=== PATIENT | male | born 1935 | race Hispanic/Latino ===

== ENCOUNTER 2018-03-31 09:27 | Observation (INO) | payer MEDICARE, MEDICAID ==
[2018-03-30 15:29] LABS: BASOPHILS % 0.7 % (0.0-1.0); EOSINOPHILS # (AUTO) 0.2 (0.0-0.4); EOSINOPHILS % 3.2 % (0.0-6.0); HEMATOCRIT 35.9 % (38.2-49.6); HEMOGLOBIN 12.4 g/dL (14.0-18.0); LYMPHOCYTES # (AUTO) 1.3 (1.0-3.2); LYMPHOCYTES % 21.3 % (18.0-39.1); MEAN CORPUSCULAR HEMOGLOBIN 30.8 pg (28-32); MEAN CORPUSCULAR HGB CONC 34.5 g/dL (31-35); MEAN CORPUSCULAR VOLUME 89.3 fL (81-99); MONOCYTES # (AUTO) 0.6 (0.2-0.8); MONOCYTES % 9.6 % (4.4-11.3); NEUTROPHILS # (AUTO) 3.9 (2.1-6.9); NEUTROPHILS % 64.5 % (38.7-80.0); PLATELET COUNT 162 x10e3/uL (140-360); RED BLOOD COUNT 4.02 x10e6/uL (4.3-5.7); RED CELL DISTRIBUTION WIDTH 13.4 % (11.7-14.4)
[2018-03-30 15:44] LABS: CALCIUM 8.6 mg/dL (8.4-10.2); CREATININE, SERUM 1.93 mg/dL (0.72-1.25)
[2018-03-30 15:49] LABS: ANION GAP 12.8 mmol/L (8-16); POTASSIUM 4.8 mmol/L (3.5-5.1)
--- NOTE | 2018-03-30 16:09 | Diagnostic Imaging Report ---
PROCEDURE: Frontal and lateral views of the chest. COMPARISON: None. INDICATIONS: PREOP FINDINGS: Lines/tubes: None. Lungs: Limited by low lung volumes. There is no evidence of pneumonia or pulmonary edema. Pleura: There is no significant pleural effusion or pneumothorax. Heart and mediastinum: The cardiac silhouette is enlarged, accentuated by low lung volumes. Bones: No acute bony abnormality. Degenerative changes of thoracic spine. IMPRESSION: 1. No definite acute cardiopulmonary disease. Dictated by: Masood Acevedo M.D. on 03/30/2018 at 16:15 Electronically approved by: Masood Acevedo M.D. on 03/30/2018 at 16:15
[~2018-03-31 09:27] MED LIST: AMLODIPINE-ATO1 EAC6 PO; ATORVASTATIN CA10 MG PO; BREO INH; BRIMONIDINE TAR10 ML OS; CLOPIDOGREL75 MG PO; DORZOLAMIDE HCL10 ML OS; FAMOTIDINE20 MG PO; FLUTICASONE PRO16 GM; GLIMEPIRIDE2 MG PO; KIONEX15 GM/60 M PO; LATANOPROST2.5 ML OP; LEVOCETIRIZINE D5 MG PO; LOSARTAN POTAS100 MG PO; LYRICA50 MG PO; METFORMIN HCL850 MG PO; NIFEDIPINE ER30 M1 PO; PANTOPRAZOLE SO40 MG PO; PRAVASTATIN SOD40 MG PO; PROVENTIL HFA6.7 GM INH; ROPIVACAINE 246.25 MG, EPINEPHRINE HCL 1:1000 0.5 MG, CLONIDINE HCL 0.08 MG, KETOROLAC ... INJ ONE; SYMBICORT 16010.2 GM INH; TAMSULOSIN HCL0.4 MG PO; TIMOLOL MALEATE10 M1 OD; [UNRECOGNIZED DRUG - OTHER] OP
[2018-03-31] MEDS ORDERED: DEXAMETHASONE SOD PHOS 10 MG/1 ML VIAL ONE (10:04)
[2018-03-31] MEDS ORDERED: CELECOXIB 200 MG CAP ONE (10:04)
[2018-03-31] MEDS ORDERED: VANCOMYCIN 1GM/NS 250 ML 250 ML ONE (10:05)
[2018-03-31] MEDS ORDERED: GABAPENTIN 300 MG CAP ONE (10:05)
[2018-03-31] MEDS ORDERED: TRANEXAMIC ACID 1,000 MG/10 ML ML ONE (11:21)
[2018-03-31] MEDS ORDERED: BACITRACIN 50,000 UNIT VIAL ONE (11:22)
[2018-03-31] MEDS ORDERED: ACETAMINOPHEN 1000 MG/100 ML 100 ML IV ONE (12:21)
[2018-03-31] MEDS ORDERED: HYDROCODONE/APAP 7.5MG-325MG 1 EA TAB PO PRN (13:15)
[2018-03-31] MEDS ORDERED: PROMETHAZINE HCL (IM) 25 MG/ML VIAL INJ PRN (13:15)
[2018-03-31] MEDS ORDERED: HYDROCODONE/APAP 5MG-325MG TAB PO PRN (13:15)
[2018-03-31] MEDS ORDERED: DOCUSATE SODIUM 100 MG CAP PO PRN (13:15)
[2018-03-31] MEDS ORDERED: ONDANSETRON HCL INJ 2 MG/ML VIAL IV PRN (13:15)
[2018-03-31] MEDS ORDERED: DIPHENHYDRAMINE HCL INJ 50 MG/ML VIAL IM/IV PRN (13:15)
[2018-03-31] MEDS ORDERED: ACETAMINOPHEN 650 MG SUPP PR PRN (13:15)
[2018-03-31] MEDS ORDERED: KETOROLAC TROMETHAMINE 30 MG/ML VIAL IV PRN (13:15)
[2018-03-31] MEDS ORDERED: CEFAZOLIN SOD 1 GM/D5W 50ML 50 ML IV SCH (14:00)
--- NOTE | 2018-03-31 14:17 | Operative Report ---
DATE OF PROCEDURE: March 31, 2018 ADVERTISING PROJECT MANAGER: Chris Raya PA-C The patient was brought to the operating room for induction of anesthesia. Throughout this case, my PA's assistance was necessary for retraction of soft tissue and positioning of the extremity. This allows for efficient and technically successful execution of the operation and is considered medically necessary. PREOPERATIVE DIAGNOSIS: Osteoarthritis right knee. POSTOPERATIVE DIAGNOSIS: Osteoarthritis right knee. PROCEDURE: Right total knee arthroplasty. INDICATIONS: The patient is an 82-year-old gentleman who has end-stage arthritis of his right knee. He has failed conservative management and would like to proceed with a right total knee replacement. We have reviewed the risks and benefits. He states he understands and wishes to proceed. DESCRIPTION OF PROCEDURE: The patient was brought into the operating room and placed under general anesthetic. His right lower extremity was prepped and draped in a sterile manner. He received prophylactic antibiotics, a regional block and tranexamic acid in the holding area. A preoperative time out was performed. The extremity was exsanguinated, and a proximal tourniquet was inflated to 300 mmHg. An anterior approach with a medial parapatellar arthrotomy was performed. Clear synovial fluid was removed from the joint. Soft-tissue releases were performed to bring the knee up into flexion with the patella everted. Complete loss of articular cartilage, particularly in the medial compartment, was noted. The cruciate ligaments, marginal osteophytes and meniscal remnants were removed. A Hernandez and Nephew Phoebe II posterior stabilized knee system was used. An extramedullary cutting guide was used to resect the proximal tibia. The tibial baseplate was a size number 5. The central fin punch was impacted, and attention was directed towards the distal femur. An intramedullary cutting guide was used to resect the distal femur in 6 degrees of valgus and rotation referencing off of a combination of landmarks including Rey's line, the epicondylar axis and the posterior condyles. The femoral component was a size number 6. The anterior and posterior cuts were made. Trial reductions were performed. A 9 mm ultracongruent tibial insert provided appropriate soft-tissue balancing in flexion and full extension. The patella was resurfaced with a 32 mm x 9 mm patellar button. The thickness was checked before and after and was right around 22 mm. Patellar tracking was noted to be concentric. The trial implants were removed. A 100 mL premixed pericapsular ROBINSON injection was placed into the surrounding soft tissue. The knee was thoroughly irrigated with a shower-tip pulsatile lavage. The components were cemented into place using a single mix of Palacos cement pre-loaded with antibiotics. Care was taken to remove extravasated cement. The wound was further irrigated while the cement cured. The arthrotomy was then closed with interrupted number 1 Ethibond stitches. The knee was put through flexion and extension to ensure a secure closure. The skin was closed with subcuticular Vicryl and fernanda. A sterile Aquacel bandage was then applied. The patient was extubated and transported to the recovery room in stable condition. Blood loss was minimal. All needle and sponge counts were correct. Job#: [id number] KRISTI
--- NOTE | 2018-03-31 14:32 | Diagnostic Imaging Report ---
Exam: Right knee 2 views History: Postop Comparison: None. Findings: See impression Impression: Frontal and lateral postoperative radiographs of the right knee show expected changes related to total knee arthroplasty with intact hardware, subcutaneous gas and skin fernanda. No periprosthetic displaced fracture. Atherosclerotic vascular calcifications with an anterior tibial arterial stent. Signed by: Dr. Hussain Fernández M.D. on 03/31/2018 2:28 PM
[2018-03-31] MEDS: SODIUM CHLORIDE 0.9% 1000ML 1,000 ML IV SCH ×2 (15:00→23:07)
[2018-03-31 15:59] VITALS: BP 142/60
[2018-03-31 16:00] VITALS: BP 142/68
[2018-03-31] MEDS ORDERED: CELECOXIB 100 MG CAP PO SCH (17:00)
[2018-03-31] MEDS: ASPIRIN 325 MG TAB PO SCH (17:18)
[2018-03-31] MEDS ORDERED: ATROPINE SULFATE 1 MG/ML VIAL ONE (17:19)
[2018-03-31] MEDS: CELECOXIB 200 MG CAP PO SCH (17:19)
[2018-03-31] MEDS: ACETAMINOPHEN 1000 MG/100 ML IV SCH ×2 (17:19→23:59)
[2018-03-31] MEDS ORDERED: SEVOFLURANE INHAL SOLN 250 ML PEN BTL ONE (17:19)
[2018-03-31] MEDS ORDERED: DEXAMETHASONE SOD PHOS INJ 4 MG/ML VIAL ONE (17:19)
[2018-03-31] MEDS: FAMOTIDINE 20 MG TAB PO SCH (17:19)
[2018-03-31] MEDS: PANTOPRAZOLE SOD 40 MG TABEC PO SCH (17:19)
[2018-03-31] MEDS ORDERED: ONDANSETRON HCL INJ 2 MG/ML VIAL ONE (17:19)
[2018-03-31] MEDS ORDERED: PROPOFOL IV EMULSION 10 MG/ML 20 ML VIAL ONE (17:19)
[2018-03-31] MEDS ORDERED: ROPIVACAINE 0.5% 5 MG/ML 30 ML SDV ONE (17:22)
[2018-03-31] MEDS ORDERED: LIDOCAINE 2%/ EPINEPHRINE 20ML MDV ONE (17:22)
[2018-03-31] MEDS: NIFEDIPINE CR 30 MG TAB PO SCH (17:30)
[2018-03-31] MEDS ORDERED: FENTANYL CITRATE/PF 100MCG/2 ML INJ ONE (17:32)
[2018-03-31] MEDS ORDERED: MIDAZOLAM HCL 2 MG/2 ML VIAL ONE (17:32)
[2018-03-31] MEDS: CEFAZOLIN SOD 1 GM VIAL IV SCH ×2 (17:32→21:52)
[2018-03-31 20:00] VITALS: BP 154/69
[2018-03-31 20:15] VITALS: BP 154/69
[2018-03-31] MEDS ORDERED: NON-FORMULARY MEDICATION (Pravastatin Sodium 40 MG) PO SCH (21:00)
[2018-03-31] MEDS ORDERED: TAMSULOSIN HCL 0.4 MG CAP PO SCH (21:00)
[2018-03-31] MEDS ORDERED: ZOLPIDEM TARTRATE 5 MG TAB PO PRN (21:00)
[2018-03-31] MEDS ORDERED: PRAVASTATIN 20 MG TAB PO SCH (21:00)
[2018-04-01 00:42] VITALS: BP 173/79
[2018-04-01 04:00] VITALS: BP 125/53
[2018-04-01 05:35] LABS: HEMATOCRIT 32.9 % (38.2-49.6); HEMOGLOBIN 11.5 g/dL (14.0-18.0)
[2018-04-01] MEDS: ACETAMINOPHEN 1000 MG/100 ML IV SCH ×2 (05:43→13:00)
[2018-04-01] MEDS: CEFAZOLIN SOD 1 GM VIAL IV SCH (06:22)
[2018-04-01 08:41] VITALS: BP 198/76
[2018-04-01] MEDS ORDERED: CLOPIDOGREL BISULFATE 75 MG TAB PO SCH (09:00)
[2018-04-01] MEDS ORDERED: LOSARTAN POTASSIUM 100 MG TAB PO SCH (09:00)
[2018-04-01] MEDS: NIFEDIPINE CR 30 MG TAB PO SCH (09:00)
[2018-04-01] MEDS ORDERED: GLIMEPIRIDE 2 MG TAB PO SCH (09:00)
[2018-04-01] MEDS: PANTOPRAZOLE SOD 40 MG TABEC PO SCH (09:00)
[2018-04-01] MEDS: ASPIRIN 325 MG TAB PO SCH (09:00)
[2018-04-01] MEDS: CELECOXIB 200 MG CAP PO SCH (09:00)
[2018-04-01] MEDS ORDERED: LORATADINE 10 MG TAB PO SCH (09:00)
[2018-04-01] MEDS ORDERED: NON-FORMULARY MEDICATION (Levocetirizine Dihydrochloride 5 MG) PO SCH (09:00)
[2018-04-01] MEDS ORDERED: LATANOPROST(OPTH) 2.5 ML BTL OP SCH (09:00)
[2018-04-01] MEDS ORDERED: PREGABALIN 50 MG CAP PO SCH (09:00)
[2018-04-01] MEDS ORDERED: FLUTICASONE PROPIONATE NASAL SPRAY NS SCH (09:00)
[2018-04-01] MEDS: FAMOTIDINE 20 MG TAB PO SCH (09:00)
[2018-04-01] MEDS: SODIUM CHLORIDE 0.9% 1000ML 1,000 ML IV SCH (09:07)
[2018-04-01] MEDS ORDERED: ACETAMINOPHEN 1000 MG/100 ML IV PRN (13:15)
[2018-04-01 13:20] VITALS: BP 152/70
[2018-04-01] MEDS ORDERED: NORCO 7.5-3251 EACH PO (15:12)
== END 2018-04-01 15:32 | disposition home or self-care (01) ==
LOC: OR 09:27 → PACU V 14:54 → MED/SURG 14:55
PROVIDERS: ADMIT Specialist; ATTEND Specialist
DX: M17.11 Unilateral primary osteoarthritis, right knee (principal); K21.9 Gastro-esophageal reflux disease without esophagitis; Z88.0 Allergy status to penicillin; N18.9 Chronic kidney disease, unspecified; J30.2 Other seasonal allergic rhinitis; I12.9 Hypertensive chronic kidney disease with stage 1 through stage 4 chronic kidney disease, or unspecified chronic kidney disease; E11.22 Type 2 diabetes mellitus with diabetic chronic kidney disease
CPT/HCPCS: 27447; 36415 ×3; 71046; 73560; 80048; 82948 ×2; 85014; 85018; 85025; 93005; 97116 ×2; 97161; 97530; G0378 ×2; G8978; G8979; J0171; J0461; J0690 ×2; J1100 ×2; J1885; J2001; J2250; J2405; J2795; J3370; J7030; S0164 ×2; C1713

== ENCOUNTER 2019-06-14 05:47 | Observation (INO) | payer MEDICARE ==
[2019-06-11 12:30] LABS: INR 1.21; PARTIAL THROMBOPLASTIN TIME 34.5 seconds (23.8-35.5); PROTHROMBIN TIME 15.9 seconds (11.9-14.5)
--- NOTE | 2019-06-11 13:09 | Diagnostic Imaging Report ---
EXAMINATION: CHEST 2 VIEWS INDICATION: Pre-operative COMPARISON: None FINDINGS: LINES/TUBES:None LUNGS:The lungs are moderately inflated. There is perihilar fullness and indistinctness of the pulmonary vasculature. Patchy bibasilar opacities. PLEURA:No pleural effusion or pneumothorax. MEDIASTINUM:The cardiomediastinal silhouette is enlarged. BONES/SOFT TISSUES:No acute osseous injury. ABDOMEN:No free air under the diaphragm. IMPRESSION: Cardiomegaly and mild pulmonary edema. Patchy bibasilar opacities, most likely subsegmental atelectasis. Signed by: Aron Salamanca MD on 06/11/2019 1:05 PM
[~2019-06-14] VITALS: Ht 157.5 cm; Wt 90.3 kg
[2019-06-14] VITALS (7 sets, daily range): BP systolic 122–159; BP diastolic 71–91
[~2019-06-14 05:47] MED LIST changes: +ALLOPURINOL100 MG PO; +AMLODIPINE-VAL1 EAC3 PO; +AMMONIUM LACTA385 GM TOP; +CHLORTHALIDONE25 MG PO; +DIATRIZOATE MEGL/DIATRIZOA SOD 30 ML BTL PO ONE; +DORZOLAMIDE-TI1 EACH OU; +MYRBETRIQ25 MG PO; +NORCO 7.5-3251 EACH PO; -ROPIVACAINE 246.25 MG, EPINEPHRINE HCL 1:1000 0.5 MG, CLONIDINE HCL 0.08 MG, KETOROLAC ... INJ ONE; +ROPIVACAINE 246.25 MG, EPINEPHRINE HCL 1:1000 1ML 0.5 MG, CLONIDINE HCL 0.08 MG, KETORO... INJ ONE; +VELTASSA8.4 GM PO; +VITAMIN D250000 UNIT PO
[2019-06-14] MEDS ORDERED: SODIUM CHLORIDE 0.9% 500ML 500 ML ONE (06:13)
[2019-06-14] MEDS ORDERED: TRANEXAMIC ACID 1,000 MG/10 ML ML ONE (06:13)
[2019-06-14] MEDS ORDERED: VANCOMYCIN HCL 1,000 MG ONE (06:13)
[2019-06-14] MEDS ORDERED: BACITRACIN 50,000 UNIT VIAL ONE (06:14)
[2019-06-14] MEDS ORDERED: CELECOXIB 200 MG CAP ONE (06:39)
[2019-06-14] MEDS ORDERED: DEXAMETHASONE SOD PHOS 10 MG/1 ML VIAL ONE (06:39)
[2019-06-14] MEDS ORDERED: GABAPENTIN 300 MG CAP ONE (06:40)
[2019-06-14] MEDS ORDERED: VANCOMYCIN 1GM/NS 250 ML 250 ML ONE (06:40)
[2019-06-14] MEDS ORDERED: ROPIVACAINE 246.25 MG, EPINEPHRINE HCL 1:1000 1ML 0.5 MG, CLONIDINE HCL 0.08 MG, KETORO... INJ ONE ×5 (07:30)
[2019-06-14] MEDS: SODIUM CHLORIDE 0.9% 1000ML 1,000 ML IV SCH ×3 (08:37→18:37)
[2019-06-14] MEDS ORDERED: ACETAMINOPHEN 650 MG SUPP PR PRN (08:45)
[2019-06-14] MEDS ORDERED: PROMETHAZINE HCL (IM) 25 MG/ML VIAL INJ PRN (08:45)
[2019-06-14] MEDS ORDERED: DOCUSATE SODIUM 100 MG CAP PO PRN (08:45)
[2019-06-14] MEDS ORDERED: ONDANSETRON HCL INJ 2MG/ML 2ML 2 MG/ML VIAL IV PRN (08:45)
[2019-06-14] MEDS ORDERED: ZOLPIDEM TARTRATE 5 MG TAB PO PRN (08:45)
[2019-06-14] MEDS ORDERED: HYDROCODONE/APAP 7.5MG-325MG 1 EA TAB PO PRN (08:45)
[2019-06-14] MEDS ORDERED: KETOROLAC TROMETHAMINE 30 MG/ML VIAL IV PRN (08:45)
[2019-06-14] MEDS ORDERED: HYDROCODONE/APAP 5MG-325MG TAB PO PRN (08:45)
[2019-06-14] MEDS ORDERED: DIPHENHYDRAMINE HCL INJ 50 MG/ML VIAL IM/IV PRN (08:45)
[2019-06-14] MEDS: ASPIRIN 325 MG TAB PO SCH ×2 (09:00→16:31)
[2019-06-14] MEDS: CELECOXIB 200 MG CAP PO SCH ×2 (09:00→16:31)
--- NOTE | 2019-06-14 09:29 | Diagnostic Imaging Report ---
EXAMINATION: KNEE LEFT 1-2 VIEWS INDICATION: Postoperative COMPARISON: None FINDINGS: Portable AP and lateral radiographs of the left knee demonstrate immediate postoperative findings of left total knee replacement. Alignment is anatomic. No unexpected fracture. Postoperative subcutaneous soft tissue emphysema. Surgical skin fernanda in place. Small joint effusion. Atherosclerotic vascular calcifications. Anterior tibial artery stent in place. IMPRESSION: Anatomic alignment status post left total knee replacement. Signed by: Aron Salamanca MD on 06/14/2019 9:25 AM
--- NOTE | 2019-06-14 09:45 | NUR ---
ARRIVED VIA STRETCHER FROM PACU, AA&OX3 AT THIS TIME, PER FAMILY, PT IS FORGETFUL, LEFT HAND IV INTACT, DTV, BILAT FOOT PUMPS IN PLACE, BRIANNA HOSE TO RIGHT LE, ORIENTED TO ROOM AND CALL LIGHT SYSTEM, CALL LIGHT WITHIN REACH,
--- NOTE | 2019-06-14 10:54 | Operative Report ---
DATE OF PROCEDURE: 06/14/2019 SURGEON: Hussain Issa MD MANAGER MEDIA: Chris Raya, certified PA. PREOPERATIVE DIAGNOSIS: Osteoarthritis, left knee. POSTOPERATIVE DIAGNOSIS: Osteoarthritis, left knee. PROCEDURE: Left total knee arthroplasty. INDICATIONS: The patient is an 83-year-old gentleman, who has end-stage arthritis of his left knee. He has failed conservative management and would like to proceed with a left total knee replacement. He is familiar with the procedure, having had a right knee replacement. The risks and benefits were reviewed. The implants and hospital stay were reviewed. He states he understands and wishes to proceed. PROCEDURE IN DETAIL: The patient was brought to the operating room and placed under general anesthetic. He received a regional block, prophylactic antibiotics, and tranexamic acid in the holding area. His left lower extremity was prepped and draped in a sterile manner. A preoperative time-out was performed. The extremity was exsanguinated and a proximal tourniquet was inflated to 300 mmHg. An anterior incision with a medial parapatellar arthrotomy was performed. Clear synovial fluid was removed from the joint. Abundant synovitis was encountered. A partial synovectomy was performed. Soft tissue releases were performed to bring the knee up into flexion with the patella everted. The cruciate ligaments were sacrificed. A Hernandez and NephSnehta Knee System was used throughout the case. The meniscal remnants and marginal osteophytes were removed. An extramedullary cutting guide was used to resect the proximal tibia. The tibial base plate was a size #5. The central fin punch was impacted and attention was directed towards the distal femur. An intramedullary cutting guide was used to resect the distal femur in 6 degrees of valgus and rotation, referencing off a combination of landmarks including Whitesides line, the epicondylar axis, and the posterior condyles. The femoral component was also a size #5. The anterior and posterior cuts were made. Trial reductions were performed. A 9 mm ultracongruent tibial insert provided appropriate soft tissue balancing in full extension and 90 degrees of flexion. The patella was resurfaced with a 32 mm x 9 mm patellar button. The thickness was checked before and after resurfacing and it was right around 23 mm. Patellar tracking was noted to be concentric. The trial implants were then all removed. A 100 mL premixed pericapsular ROBINSON injection was placed into the surrounding soft tissue. The knee was thoroughly irrigated with a shower tip pulsatile lavage. The components were cemented into place using a single mix of Biomet high viscosity cement preloaded with antibiotics. Care was taken to remove all extravasated cement. The wound was further irrigated while the cement cured. The arthrotomy was then closed after sprinkling 500 mg of vancomycin powder into the joint. The knee was put through flexion and extension to ensure a secure closure. The skin was closed with subcuticular Vicryl and fernanda. A sterile Aquacel bandage was applied. The patient was extubated and transported to the recovery room in stable condition. Blood loss was minimal. All needle and sponge counts were correct. Hussain Issa MD DR/EVE /[id number]
[2019-06-14] MEDS ORDERED: DEXTROSE 50% SYRINGE 50 ML IV PRN (11:00)
--- NOTE | 2019-06-14 11:00 | NUR ---
SPOKE WITH MD RODRIGEZ, AWARE OF CONSULT, ORDERS NOTED
[2019-06-14] MEDS: ACETAMINOPHEN 1000 MG/100 ML IV SCH ×2 (11:05→18:15)
[2019-06-14] MEDS: GLIMEPIRIDE 2 MG TAB PO SCH (11:30)
[2019-06-14] MEDS ORDERED: INSULIN REGULAR, HUMAN 100 UNIT/1 ML 3ML VIAL SQ SCH ×2 (11:30→12:30)
[2019-06-14] MEDS ORDERED: DORZOLAMIDE/TIMOLOL/PF 1 EACH DROPERETTE OP SCH (12:00)
--- NOTE | 2019-06-14 13:02 | NUR ---
PT TOLERATING PO INTAKE, STATES "THROAT SORE FROM SURGERY", NO DIFFICULTIES SWALLOWING AT THIS TIME, DRESSING TO LLE CDI, CALL LIGHT WITHIN REACH, FAMILY AT SIDE
--- NOTE | 2019-06-14 14:28 | NUR ---
PER PHYSICAL THERAPIST, PT UNABLE TO FOLLOW COMMANDS AT THIS TIME, PT "BUCKLED", "NOT SAFE TO AMBULATE TODAY, WILL TRY TOMORROW"
--- NOTE | 2019-06-14 15:38 | NUR ---
DR REYNOSO OFFICE PREARRANGED FOLLOWING DISCHARGE PLAN OF: HOME HEALTH WITH [facility] BUT WAS NOT IN NETWORK AND SENT TO [facility] [phone] CONFIRMED WITH [facility] 3 IN ONE COMMODE, CPM AND ROLLING WALKER WITH WHEELS. PROVIDED BY [employer] [phone] WILL BE DELIVERED TO HOSPITAL BY 10AM.
[2019-06-14] MEDS ORDERED: CHLORASEPTIC SPRAY 177 ML BTL MM PRN (15:45)
--- NOTE | 2019-06-14 16:21 | NUR ---
PER FAMILY, PT VOIDED USING URINAL, FAMILY EMPTIED, PT AND FAMILY EDUCATED TO CALL FOR ASSISTANCE SO NURSE CAN DOCUMENT AMOUNT OF URINE, FAMILY VERBALIZED UNDERSTANDING
[2019-06-14] MEDS: INSULIN REGULAR, HUMAN 100 UNIT/1 ML 3ML VIAL SQ SCH ×2 (16:40→20:44)
[2019-06-14] MEDS ORDERED: DORZOLAMIDE/TIMOLOL (OPTH SOL) 10 ML DRPETTE OP SCH (17:30)
[2019-06-14] MEDS ORDERED: EPHEDRINE SULFATE INJ 50 MG/10 ML SYR ONE (18:15)
[2019-06-14] MEDS ORDERED: LIDOCAINE HCL 2% LOCAL INJ 5 ML SDV VIAL INJ ONE (18:15)
[2019-06-14] MEDS ORDERED: SEVOFLURANE INHAL SOLN 250 ML PEN BTL ONE (18:15)
[2019-06-14] MEDS ORDERED: GLYCOPYRROLATE INJ 1MG/ 5 ML SYR ONE (18:15)
[2019-06-14] MEDS ORDERED: ONDANSETRON HCL INJ 2MG/ML 2ML 2 MG/ML VIAL ONE (18:15)
[2019-06-14] MEDS ORDERED: PROPOFOL IV EMULSION 10 MG/ML 20 ML VIAL ONE (18:15)
[2019-06-14] MEDS ORDERED: ACETAMINOPHEN 1000 MG/100 ML IV ONE (18:15)
[2019-06-14] MEDS ORDERED: LIDOCAINE HCL 2% LOCAL 20 ML VIAL ONE (18:23)
[2019-06-14] MEDS ORDERED: BUPIVACAINE 0.25% 30ML SDV INJ ONE (18:23)
[2019-06-14] MEDS ORDERED: FENTANYL CITRATE/PF 100MCG/2 ML INJ ONE (18:28)
[2019-06-14] MEDS ORDERED: MIDAZOLAM HCL 2 MG/2 ML VIAL ONE (18:28)
--- NOTE | 2019-06-14 19:00 | NUR ---
WALKING ROUND AND REPORT RECEIVED. PT IS AWAKE, ALERT AND ONLY [facility] SPEAKING. HE DENIES ANY PAIN, LLE WRAPPED WITH NUBIA INTACT AND IV INFUSING WITHOUT REDNESS OR SWELLING. POC DISCUSSED IN [facility]. CALL SEAY WITHIN REACH.
[2019-06-14] MEDS: VANCOMYCIN 1GM/NS 250 ML 250 ML IV SCH (19:04)
--- NOTE | 2019-06-14 20:01 | NUR ---
CPM PLACED 0-50 AND PATIENT IS TOLERATING WELL
[2019-06-14] MEDS: DORZOLAMIDE/TIMOLOL (OPTH SOL) 10 ML DRPETTE OP SCH (21:00)
[2019-06-14] MEDS ORDERED: ALLOPURINOL 100 MG TAB PO SCH (21:00)
[2019-06-14] MEDS ORDERED: PRAVASTATIN 20 MG TAB PO SCH (21:00)
[2019-06-14] MEDS ORDERED: PREGABALIN 50 MG CAP PO SCH (21:00)
[2019-06-14] MEDS ORDERED: LORATADINE 10 MG TAB PO SCH (21:00)
[2019-06-14] MEDS ORDERED: FAMOTIDINE 20 MG TAB PO SCH (21:00)
[2019-06-14] MEDS: TAMSULOSIN HCL 0.4 MG CAP PO SCH (21:03)
--- NOTE | 2019-06-14 22:11 | NUR ---
CPM REMOVED. CALL SEAY WITHIN REACH.
[2019-06-15] MEDS: ACETAMINOPHEN 1000 MG/100 ML IV SCH ×2 (00:57→06:03)
[2019-06-15] MEDS: SODIUM CHLORIDE 0.9% 1000ML 1,000 ML IV SCH (04:37)
[2019-06-15 04:47] VITALS: BP 136/59
[2019-06-15 05:17] LABS: HEMATOCRIT 30.8 % (38.2-49.6); HEMOGLOBIN 10.4 g/dL (14.0-18.0)
--- NOTE | 2019-06-15 05:39 | Consultation ---
DATE OF CONSULTATION: REASON FOR CONSULTATION: Postop medical management. HISTORY OF PRESENT ILLNESS: The patient is an 83-year-old gentleman, status post left knee arthroplasty. He is doing postoperative and he states his pain is minimal. Denies any chest pain, fever, chills, nausea, vomiting, headache, shortness of breath. PAST MEDICAL HISTORY: Significant for hypertension, BPH, diabetes, hyperlipidemia. MEDICATIONS: See MAR. ALLERGIES: PENICILLIN. SOCIAL HISTORY: Nonsmoker, nondrinker. FAMILY HISTORY: Hypertension. PHYSICAL EXAMINATION: VITAL SIGNS: Temperature 96.8, pulse 63, blood pressure is 122/91, sats 100% on room air. GENERAL: No apparent distress, lying in bed. NECK: Supple. CARDIOVASCULAR: Regular rate and rhythm. LUNGS: Clear to auscultation bilaterally. ABDOMEN: Good bowel sounds. It is soft, slightly distended, but no peritoneal signs. EXTREMITIES: No clubbing or cyanosis. NEUROLOGIC: Nonfocal. ASSESSMENT AND PLAN: 1. Status post left knee arthroplasty. Continue postoperative care. 2. Anemia. Check a CBC. 3. Hypertension. Continue current care and monitoring. 4. Diabetes. Continue current care and monitoring. 5. Benign prostatic hypertrophy. Continue with medications. 6. Left knee pain. Continue with postoperative pain control. Please see hospital chart for full details. MD JOSHUA Duque/EVE /[id number]
[2019-06-15] MEDS: INSULIN REGULAR, HUMAN 100 UNIT/1 ML 3ML VIAL SQ SCH ×2 (07:30→11:53)
[2019-06-15] MEDS ORDERED: ACETAMINOPHEN 1000 MG/100 ML IV PRN (08:45)
[2019-06-15] MEDS ORDERED: CLOPIDOGREL BISULFATE 75 MG TAB PO SCH (09:00)
[2019-06-15] MEDS ORDERED: FLUTICASONE PROPIONATE NASAL SPRAY NS SCH (09:00)
[2019-06-15] MEDS ORDERED: GLIMEPIRIDE 2 MG TAB PO SCH (09:00)
[2019-06-15] MEDS ORDERED: AMLODIPINE BESYLATE 10 MG TAB PO SCH (09:00)
[2019-06-15] MEDS ORDERED: PATIROMER CALCIUM SORBITEX PO SCH (09:00)
[2019-06-15] MEDS ORDERED: VALSARTAN 160 MG TAB PO SCH (09:00)
[2019-06-15] MEDS ORDERED: CHLORTHALIDONE 25 MG TAB PO SCH (09:00)
[2019-06-15] MEDS ORDERED: TAMSULOSIN HCL 0.4 MG CAP PO SCH (09:00)
[2019-06-15] MEDS: ASPIRIN 325 MG TAB PO SCH (11:18)
[2019-06-15] MEDS: CELECOXIB 200 MG CAP PO SCH (11:20)
[2019-06-15] MEDS: TAMSULOSIN HCL 0.4 MG CAP PO SCH (11:21)
[2019-06-15] MEDS: GLIMEPIRIDE 2 MG TAB PO SCH (11:22)
[2019-06-15] MEDS: VANCOMYCIN 1GM/NS 250 ML 250 ML IV SCH (11:22)
[2019-06-15] MEDS: DORZOLAMIDE/TIMOLOL (OPTH SOL) 10 ML DRPETTE OP SCH (11:22)
[2019-06-15] MEDS ORDERED: ONDANSETRON HCL 4 MG ORAL DISINTEGRATING TAB PO PRN (11:45)
--- NOTE | 2019-06-15 12:02 | NUR ---
Soliz letter explained to patient and son. Son signed, placed in chart, copy given to patient
--- NOTE | 2019-06-15 13:45 | NUR ---
Visit made by the Spiritual Care Department Pastoral Visitor, Anamaria Washington. PV provided pastoral presence, prayer, hospitality, and supportive listening. Pastoral Visitor informed pt/family of the scope of Psychology Technician Services and availability. PASCUAL MARIA [employer] Counselor Spiritual Care Department O: [phone] Pager: [phone] ([phone] number calling from)
[2019-06-15 14:00] VITALS: BP 168/78
[2019-06-15] MEDS ORDERED: MIDODRINE HCL 5 MG TABLET PO SCH (14:00)
[2019-06-15] MEDS ORDERED: NORCO 7.5-3251 EACH PO (15:06)
[2019-06-15] MEDS ORDERED: SIMVASTATIN 20 MG TAB PO SCH (21:00)
== END 2019-06-15 15:21 | disposition home or self-care (01) ==
LOC: OR 05:47 → PACU V 08:39 → IMCU 10:24
PROVIDERS: ADMIT Specialist; ATTEND Specialist
DX: M17.12 Unilateral primary osteoarthritis, left knee (principal); K21.9 Gastro-esophageal reflux disease without esophagitis; Z88.0 Allergy status to penicillin; E78.00 Pure hypercholesterolemia, unspecified; J30.2 Other seasonal allergic rhinitis; Z96.651 Presence of right artificial knee joint; N18.9 Chronic kidney disease, unspecified; I73.9 Peripheral vascular disease, unspecified; Z95.820 Peripheral vascular angioplasty status with implants and grafts; F03.90 Unspecified dementia, unspecified severity, without behavioral disturbance, psychotic disturbance, mood disturbance, and anxiety; Z01.812 Encounter for preprocedural laboratory examination; Z01.811 Encounter for preprocedural respiratory examination; I12.9 Hypertensive chronic kidney disease with stage 1 through stage 4 chronic kidney disease, or unspecified chronic kidney disease; E11.22 Type 2 diabetes mellitus with diabetic chronic kidney disease; Z79.84 Long term (current) use of oral hypoglycemic drugs
CPT/HCPCS: 27447; 36415 ×3; 71046; 73560; 82948; 85014; 85018; 85610; 85730; 97116; 97139; 97161; 97530; G0378 ×2; J0131 ×2; J0171; J1100; J1817 ×2; J1885; J2001 ×2; J2250; J2405; J2704; J2795; J3010; J3370 ×3; J3490; J7030; J7040

== ENCOUNTER → 2019-06-25 | Outpatient (CLI) | payer MEDICARE ==
[~2019-06-25] MED LIST changes: -DIATRIZOATE MEGL/DIATRIZOA SOD 30 ML BTL PO ONE; -ROPIVACAINE 246.25 MG, EPINEPHRINE HCL 1:1000 1ML 0.5 MG, CLONIDINE HCL 0.08 MG, KETORO... INJ ONE
--- NOTE | 2019-06-25 16:04 | Diagnostic Imaging Report ---
EXAMINATION: CHEST 2 VIEWS INDICATION: Shortness of breath COMPARISON: Chest radiograph of 06/11/2019 FINDINGS: LINES/TUBES:None LUNGS:The lungs are well-inflated. There is perihilar fullness and indistinctness of the pulmonary vasculature. No focal consolidation. PLEURA:No pleural effusion or pneumothorax. MEDIASTINUM:Cardiomediastinal silhouette is stably enlarged. BONES/SOFT TISSUES:No acute osseous injury. ABDOMEN:No free air under the diaphragm. IMPRESSION: Cardiomegaly and mild pulmonary interstitial edema. Signed by: Aron Salamanca MD on 06/25/2019 4:00 PM
== END ==
LOC: RAD 15:29
PROVIDERS: ATTEND Internal Medicine
DX: R06.02 Shortness of breath (principal)
CPT/HCPCS: 71046

== ENCOUNTER → 2019-07-19 | Outpatient (CLI) | payer MEDICARE ==
--- NOTE | 2019-07-19 17:22 | Diagnostic Imaging Report ---
Chest, PA and lateral. History: Shortness of breath. Comparison: 06/25/2019, 06/11/2019. Discussion: The heart is mildly enlarged, stable. There is no focal consolidation, pleural effusion, or pneumothorax. There are no acute osseous abnormalities. IMPRESSION: Mild cardiomegaly without radiographic evidence of acute cardiopulmonary process. Signed by: Paul Beasley MD on 07/19/2019 5:18 PM
== END ==
LOC: RAD 16:11
PROVIDERS: ATTEND Internal Medicine
DX: R93.89 Abnormal findings on diagnostic imaging of other specified body structures (principal)
CPT/HCPCS: 71046